=== PATIENT | male | born 1995 ===

== ENCOUNTER 2020-06-13 15:28 | Emergency (ER) ==
[~2020-06-13] VITALS: Ht 185.4 cm; Wt 44.6 kg
[2020-06-13] MEDS ORDERED: PREDNISONE20 MG PO (15:55)
== END 2020-06-13 16:00 | disposition home or self-care (01) ==
LOC: COL.ER 15:28
DX: L50.9 Urticaria, unspecified (principal); U07.1 COVID-19; Z88.1 Allergy status to other antibiotic agents
CPT/HCPCS: J7512